=== PATIENT | female | born 1970 | race Caucasian/White ===

== ENCOUNTER 2018-03-23 19:36 | Emergency (ER) | payer OTHER, SELFPAY ==
[2018-03-23 19:37] VITALS: BP 126/68; PULSE 81; RESP 16; TEMP 36.7; O2SAT 98; BMI 23.6
[2018-03-23 20:14] LABS: Mucous, Urine 0 SEEN /hpf (<or=2+)
[2018-03-23 20:15] LABS: Color, Urine Red (Yellow); Glucose, Dipstick Normal (Normal); Ketone-Dipstick 5 mg/dl (Negative); Leukocyte Esterase-Dipstick 100 /ul (Negative); Nitrite-Dipstick Positive (Negative); Occult Blood-Urine 250 /ul (Negative); Protein-Dipstick 30 mg/dl (Negative); Urine Bilirubin Dipstick Negative (Negative); Urine Clarity Cloudy (Clear); Urine Urobilinogen Normal (Normal)
[2018-03-23 20:43] LABS: Squamous Epithelial Cells - UA 0-5 SEEN /hpf (5-10)
[2018-03-23 20:46] LABS: Red Blood Cells-Urine > 100 SEEN /hpf (0-5)
--- NOTE | 2018-03-23 20:46 | CT_ITS ---
STUDY: CT ABDOMEN AND PELVIS WITHOUT CONTRAST REASON FOR EXAM: Female, 47 years old. Right upper quadrant pain RADIATION DOSAGE (If Supplied By Facility): CTDIvol = ( 11.45 ) mGy, DLP = ( 580.61 ) mGycm TECHNIQUE: Transaxial images were obtained from the dome of the diaphragm to the symphysis pubis without oral contrast, and without intravenous contrast. Sagittal and coronal images were reconstructed. Individualized dose optimization techniques were used for this CT. COMPARISON: December 16, 2011 FINDINGS: The visualized lung bases are unremarkable. The visualized portions of the heart are within normal limits. Normal liver. Normal gallbladder and extrahepatic biliary system. Normal spleen. Normal pancreas. Normal bilateral adrenal glands. Normal right kidney. Tiny nonobstructing left renal calculus. No evidence for hydronephrosis or ureteral calculus. No focal renal mass given limited unenhanced nature of the study.. Normal visualized stomach. Normal small intestine. Minor diverticular disease of the sigmoid colon without evidence for acute diverticulitis.. The appendix is visualized and appears normal. Normal abdominal aorta. Normal inferior vena cava. Normal retroperitoneum. Mild prominence of uterus slightly deviated towards the right depressing the dome of the bladder which is incompletely distended. There is a tiny calcification within the uterus possibly in association with tiny fibroid. Normal abdominal wall. Lumbar spine demonstrates mild spondylosis most severe at L5-S1. Previously noted right renal stone not visualized and there are fewer stones in the left kidney when compared with previous study which may be due to interim passage of the calculi. CT/Abdomen/Pelvis without Cont IMPRESSION: Left nephrolithiasis. No evidence for hydronephrosis or ureteral calculus. No evidence for acute appendicitis. Mild diverticular disease of the sigmoid colon without evidence for acute diverticulitis Other findings as above Electronically Signed: Maxim Riggs MD at 21:19 EDT , Service support ,
[2018-03-23 20:47] LABS: White Blood Cells 5-10 SEEN /hpf (0-5)
[2018-03-23 20:48] LABS: Trichomonas 0-5 SEEN /hpf (None Seen)
[2018-03-23 20:50] LABS: Bacteria RARE /hpf (None Seen)
[2018-03-23 20:59] LABS: Absolute Lymphocyte Count 1.15 X10^3/ul (0.83-4.51); Absolute Neutrophil Count 2.9 X10^3/uL (2.0-7.7); Basophil# 0.02 X10^3/uL; Basophil% 0.4 % (0-1); Eosinophil# 0.09 X10^3/uL; Eosinophils% 1.9 % (0-5); Hematocrit 36.3 % (37-47); Lymphocyte # 1.15 X10^3/ul (4.0); Lymphocyte % 24.9 % (19-41); Mean Corp Hgb Conc 33.1 g/gl (32-36); Mean Corpuscular Hgb 28.1 pg (27.0-32.0); Mean Platelet Vol. 9.9 fl (6.2-12.0); Monocyte# 0.49 X10^3/uL; Monocyte% 10.6 % (0-10); Neutrophil # 2.87 X10^3/uL (2.7-7.7); Neutrophil % 62.2 % (47-70); POSITIVE COUNT NO; POSITIVE DIFFERENTIAL NO; POSITIVE MORPHOLOGY NO; Platelet Count 257 K/mm3 (150-450); RBC Distribution Width CV 12.9 % (11.6-14.6); RBC Distribution Width SD 39.7 fl (35.1-43.9); Red Blood Count 4.27 M/mm3 (4.2-5.4); White Blood Count 4.6 K/mm3 (4.4-11.0)
[2018-03-23 21:06] LABS: Internal QC Validated? YES +Cl - CLEAR BKGD; Pregnancy, Urine Negative Negative
[2018-03-23 21:09] LABS: ALB/GLOB Ratio 1.1 RATIO (0.9-2.4); AST(SGOT) 12 U/L (15-37); Alanine Aminotransfer ALT/SGPT 16 U/L (13-56); Albumin, Serum 3.4 g/dL (3.2-5.0); Alkaline Phosphatase 52 U/L (45-117); Anion Gap 7 (5-15); BUN 21 mg/dL (7-18); BUN/Creat Ratio 18.8 RATIO (10-20); Chloride 106 mmol/L (98-107); Creatinine, Serum 1.12 mg/dL (0.55-1.02); EST Glomerular Filtration Rate 56 mL/min (>60); Est Glom Filt Rate - Afr Amer 67 mL/min (>60); Estimated Creatinine Clearance 65.59 ml/min; Globulin 3.2 g/dL (2.2-4.2); Glucose 105 mg/dL (74-106); Lipase 133 U/L (73-393); Potassium 3.3 mmol/L (3.5-5.1); Protein, Total 6.6 g/dL (6.4-8.2); Sodium Level 140 mmol/L (136-145)
--- NOTE | 2018-03-23 22:30 | ED.DCSUM_ITS ---
- ER Visit Summary Date of Service: 03/23/18 Chief Complaint: Vaginal bleeding, abdominal pain History of Present Illness: The patient is a 47 F 1 week history of vaginal bleeding. States her last menstrual period ended a week prior. She has normal menstrual period. She goes through normal menstrual pads. Denies any anticoagulation medicines. Sexually active single partner. No history of STDs. States right-sided abdominal pain started 2 days ago, waxes and wanes. History of kidney stones, states last time was 5 years ago, states this was similar. Previous nausea. No vomiting. There is mild loose stools. Is tolerating oral fluids. Denies any urine symptoms except for noticing blood, unclear is from vaginal region. No fever, chills, sweats. Denies any history of gastric ulcers or kidney injury. Physical Examination: General: Alert and oriented ?3, no acute distress HEENT: Normocephalic, atraumatic. Moist mucosa membranes Neck: supple, nontender. Cardiovascular: Regular rate and rhythm, no murmurs Respiratory: Normal breath sounds, symmetric, no distress Abdomen: Soft, nontender, nondistended Extremities: Nontender, no edema, pulses intact ?4 Neuro: no focal neurological deficits. Test Results: White count 4.6, hemoglobin 12. Potassium 3.3. Creatinine 1.12. Lipase 130. Liver enzymes normal. Urine 100 leukocytes nitrates positive blood to 50 white blood cell count 5-10 hCG negative. 0-5 trichomonas. GC and chlamydia sent. Urine culture pending. CT abdomen pelvis: Left nephrolithiasis , no obstructive uropathy. Normal appendix. Emergency Department Course and Treatment: Patient nontoxic, nonsurgical abdomen. Declines any medications at this time. She is concerned of kidney stones. Workup initiated. CT with no acute process. Abdominal labs are normal. Urine noted leukocytes nitrites and white blood cell counts. She denies urine symptoms. Urine culture sent. However also urine noted trichomonas. I did send for GC and chlamydia. Discussed findings with the patient. She sexually active single partner. Discussed treatment options for coverage STD. She agreed. Flagyl, Rocephin, Zithromax given. Discussed alcohol precautions. Also states patient tell her partner to get tested for possible treatment. Hemoglobin stable for her vaginal bleeding complaints. She is given follow-up with on-call [employer] for outpatient evaluation and follow- up. Treatment Plan: [] Disposition: Discharge Impression: 1. Nonspecific abdominal pain 2. Trichomonas 3. Dysfunctional uterine bleeding This note was generated with [employer] dictation software. It may contain incorrect words, spelling, and punctuation that were not noted in review of the chart prior to signing ED Disposition - Plan for ED Patient: Disposition: Home or Assisted Living Chief Complaint: Abd Pain Diagnosis: Abdominal pain, Dysfunctional uterine bleeding, Trichomonas infection Instructions: ED Abdominal Pain Unkn Cause, ED Bleed Irregular Vaginal, ED Vaginitis Trichomonas Referrals: Freedom Mcintosh MD [Primary Care Provider] - Sadaf Bryson MD [STAFF PHYSICIAN] - 5-7 Days Additional Instructions: No alcohol for a week status post flagyl treatment.
[2018-03-23 22:48] LABS: Chlamydia Trachomatis by PCR Negative (Negative); Neisserai gonorrhoeae by PCR Negative (Negative); Probe Check PASS; Sample Adequacy Control PASS; Specimen Processing Control PASS
[2018-03-23] MEDS: Azithromycin 250 MG Tablet 1000 MG PO (23:02)
[2018-03-23] MEDS: Ceftriaxone 500 MG Vial 250 MG IM (23:07)
[2018-03-23 23:37] VITALS: BP 109/80; PULSE 75; RESP 16; O2SAT 98
== END 2018-03-23 23:38 | disposition home or self-care (01) ==
PROVIDERS: Emergency Provider Emergency Medicine; Family Provider Family Medicine; PCP Family Medicine
DX: R10.9 Unspecified abdominal pain (principal); A59.9 Trichomoniasis, unspecified; N93.8 Other specified abnormal uterine and vaginal bleeding; N20.0 Calculus of kidney; R19.7 Diarrhea, unspecified; I10 Essential (primary) hypertension; Z87.442 Personal history of urinary calculi; Z79.899 Other long term (current) drug therapy
CPT/HCPCS: 74176; 80053; 81001; 81025; 83690; 85025; 87086; 87088; 87491; 87591; 96372; 99285; A4216

== ENCOUNTER 2019-12-24 23:54 | Emergency (ER) | payer OTHER, SELFPAY ==
[2019-12-24 23:55] VITALS: BP 126/102; PULSE 71; RESP 16; TEMP 36.6; O2SAT 98; BMI 28.1
--- NOTE | 2019-12-25 00:15 | CT_ITS ---
STUDY: CT ABDOMEN AND PELVIS WITHOUT CONTRAST REASON FOR EXAM: Female, 49 years old. LT FLANK PAIN X 6 DAYS -- HX:HTN,KIDNEY STONES WITH PRIOR LITHOTRIPSY RADIATION DOSAGE (If Supplied By Facility): CTDIvol = ( 10.64 ) mGy, DLP = ( 571.66 ) mGycm TECHNIQUE: Transaxial images were obtained from the dome of the diaphragm to the symphysis pubis without oral contrast, and without intravenous contrast. Sagittal and coronal images were reconstructed. Individualized dose optimization techniques were used for this CT. COMPARISON: 03/23/2018. FINDINGS: The visualized lung bases are unremarkable. The visualized portions of the heart are within normal limits. Normal liver. Normal gallbladder and extrahepatic biliary system. Normal spleen. Normal pancreas. Normal bilateral adrenal glands. Normal right kidney. Normal left kidney. Normal visualized stomach. Normal small intestine. Normal colon. The appendix is visualized and appears normal. Normal abdominal aorta. Normal inferior vena cava. Normal retroperitoneum. Urinary bladder is empty. Anteverted uterus. Normal abdominal wall. Degenerative disease at L5-S1. CT/Abdomen/Pelvis without Cont IMPRESSION: No acute process within the abdomen or pelvis. No bowel obstruction. Unremarkable abdominal viscera. Electronically Signed: Lizette Orozco MD at 1:32 EST , Service support ,
--- NOTE | 2019-12-25 00:16 | ED.VIS.GEN ---
History of Present Illness Chief Complaint: Flank Pain Detail of Chief Complaint: Left flank pain Informant: Patient Onset: Days - 6 days Context: Gradual Onset Timing: Waxes and wanes Current Severity: Moderate Maximum Severity: Moderate Narrative: Patient presents with pain to the left flank that started 6 days ago. She was seen by her PCP 4 days ago. She states her blood and urine test were unremarkable at that time. She was scheduled for a CT scan to be done this week. Patient states she continues to have pain and she decided tonight to come in to be evaluated. She denies any dysuria or hematuria. She is been having normal bowel movements. She is had no fever or chills. - Past Medical History (1) Kidney stone Status: Resolved Past Medical History - Allergies and Home Meds Allergies/Adverse Reactions: Allergies meperidine HCl [From Demerol] Allergy (Verified 03/23/18 19:39) Rash Primary Care Physician: Freedom Mcintosh MD [Primary Care Provider] - Prior records reviewed: Yes Smoking Status: Never smoker Review of Systems General: Denies: Chills, Fever Eyes: Denies: Visual changes - bilaterally ENT: Denies: Bilateral ear pain Cardiovascular: Denies: Chest pain Respiratory: Denies: Dyspnea, Cough Gastrointestinal: Reports: Abdominal pain. Denies: Nausea, Vomiting, Diarrhea Genitourinary: Denies: Dysuria, Hematuria Musculoskeletal: Reports: Back pain - Left flank Skin: Denies: Rash Neurological: Denies: Headache Psych: Denies: Depression, Anxiety Allergy: Denies: Uticaria Physical Exam Vital Signs/Narrative: Vital Signs Temp Pulse Resp BP Pulse Ox 12/24/19 23:55 97.8 F 71 16 126/102 H 98 Inital Vital Signs reviewed: Yes General: Well nourished, Well developed Head: Normocephalic ENT: Moist mucous membranes Neck: Supple Cardiovascular: Regular rate, Regular rhythm Respiratory: No distress, CTA bilaterally Abdomen: Soft, Tender - Minimal tenderness in the left lower quadrant., Hypoactive bowel sounds. Negative for: Guarding, Rebound tenderness Back: Negative for: CVA tenderness Extremities: Negative for: Nontender Skin: Negative for: Normal color Neurological: Negative for: Alert, Oriented x3 Psychological: Negative for: Normal affect Diagnostic/Tx/Re-eval Impressions Abdomen/Pelvis CT 12/25/19 00:15 IMPRESSION: No acute process within the abdomen or pelvis. No bowel obstruction. Unremarkable abdominal viscera. Electronically Signed: Lizette Orozco MD at 1:32 EST , Service support , 12/25/19 00:15 Abdomen/Pelvis without Cont [CT] Stat Laboratory Results 12/25/19 12/25/19 12/25/19 00:25 00:25 00:25 WBC 5.9 RBC 4.46 Hgb 13.1 Hct 38.9 MCV 87.2 MCH 29.4 MCHC 33.7 RDW Std Deviation 40.7 RDW Coeff of Jenifer 13.0 Plt Count 198 MPV 10.0 Immature Gran % (Auto) 0.300 Neut % (Auto) 54.6 Lymph % (Auto) 32.6 [place] % (Auto) 9.3 Eos % (Auto) 2.4 Baso % (Auto) 0.8 Absolute Neuts (auto) 3.2 Absolute Lymphs (auto) 1.92 Nucleated RBC % 0 Sodium 141 Potassium 3.1 L Chloride 107 Carbon Dioxide 29.0 Anion Gap 5 BUN 32 H Creatinine 1.23 H Estim Creat Clear Calc 54.39 Est GFR (MDRD) Af Amer 60 Est GFR (MDRD) Non-Af 50 L BUN/Creatinine Ratio 26.0 H Glucose 88 Calcium 9.0 Serum , Qual NEGATIVE Urine Color Urine Clarity Urine pH Ur Specific [place] Urine Protein Urine Glucose (UA) Urine Ketones Urine Occult Blood Urine Nitrite Urine Bilirubin Urine Urobilinogen Ur Leukocyte Esterase Urine RBC Urine WBC Ur Squamous Epith Cells Urine Bacteria Urine Mucus 12/25/19 00:30 WBC RBC Hgb Hct MCV MCH MCHC RDW Std Deviation RDW Coeff of Jenifer Plt Count MPV Immature Gran % (Auto) Neut % (Auto) Lymph % (Auto) [place] % (Auto) Eos % (Auto) Baso % (Auto) Absolute Neuts (auto) Absolute Lymphs (auto) Nucleated RBC % Sodium Potassium Chloride Carbon Dioxide Anion Gap BUN Creatinine Estim Creat Clear Calc Est GFR (MDRD) Af Amer Est GFR (MDRD) Non-Af BUN/Creatinine Ratio Glucose Calcium Serum , Qual Urine Color Yellow Urine Clarity Clear Urine pH 6.0 Ur Specific [place] 1.020 Urine Protein 15 H Urine Glucose (UA) Normal Urine Ketones Negative Urine Occult Blood 10 H Urine Nitrite Negative Urine Bilirubin Negative Urine Urobilinogen Normal Ur Leukocyte Esterase Negative Urine RBC 5-10 SEEN Urine WBC 10-25 SEEN Ur Squamous Epith Cells 5-10 SEEN Urine Bacteria 0 SEEN Urine Mucus 0 SEEN - Medical Decision Making Patient was given IV fluids here. She declined anything for pain or nausea. Test results are discussed with her. Her potassium is slightly low but I would not expect this to cause focal pain in the left lower quadrant. There is no evidence of kidney stone or ovarian cyst. Patient is encouraged to call her PCP tomorrow for close follow-up. She will be given 40 mEq of potassium chloride here prior to discharge. ED Disposition - Plan for ED Patient: Disposition: Home or Assisted Living Diagnosis: Abdominal pain Instructions: ABDOMINAL PAIN, Unknown Cause, (Female) Referrals: Freedom Mcintosh MD [Primary Care Provider] - As soon as possible
[2019-12-25] MEDS: 0.9% Normal Saline 1,000 ML 200 ML IV (00:30)
[2019-12-25 00:35] LABS: Bacteria 0 SEEN /hpf (None Seen); Mucous, Urine 0 SEEN /hpf (<or=2+)
[2019-12-25 00:37] LABS: Color, Urine Yellow (Yellow); Glucose, Dipstick Normal (Normal); Ketone-Dipstick Negative (Negative); Leukocyte Esterase-Dipstick Negative /ul (Negative); Nitrite-Dipstick Negative (Negative); Occult Blood-Urine 10 /ul (Negative); Protein-Dipstick 15 mg/dl (Negative); Urine Bilirubin Dipstick Negative (Negative); Urine Clarity Clear (Clear); Urine Urobilinogen Normal (Normal)
[2019-12-25 00:45] LABS: Internal QC Validated? YES +Cl - CLEAR BKGD; Pregnancy, Serum, hCG Quali. NEGATIVE Negative
[2019-12-25 00:45] LABS: Red Blood Cells-Urine 5-10 SEEN /hpf (0-5); Squamous Epithelial Cells - UA 5-10 SEEN /hpf (5-10); White Blood Cells 10-25 SEEN /hpf (0-5)
[2019-12-25 00:53] LABS: Anion Gap 5 (5-15); BUN 32 mg/dL (7-18); Chloride 107 mmol/L (98-107); Creatinine, Serum 1.23 mg/dL (0.55-1.02); EST Glomerular Filtration Rate 50 mL/min (>60); Est Glom Filt Rate - Afr Amer 60 mL/min (>60); Estimated Creatinine Clearance 54.39 ml/min; Glucose 88 mg/dL (74-106); Potassium 3.1 mmol/L (3.5-5.1); Sodium Level 141 mmol/L (136-145)
[2019-12-25 00:54] LABS: Absolute Lymphocyte Count 1.92 X10^3/uL (0.83-4.51); Absolute Neutrophil Count 3.2 X10^3/uL (2.0-7.7); Basophil# 0.05 X10^3/uL; Basophil% 0.8 % (0-1); Eosinophil# 0.14 X10^3/uL; Eosinophils% 2.4 % (0-5); Hematocrit 38.9 % (37-47); Hemoglobin 13.1 g/dL (12.0-15.0); Lymphocyte # 1.92 X10^3/ul (4.0); Lymphocyte % 32.6 % (19-41); Mean Corp Hgb Conc 33.7 g/dL (32-36); Mean Corpuscular Hgb 29.4 pg (27.0-32.0); Mean Corpuscular Volume 87.2 fL (81-99); Monocyte# 0.55 X10^3/uL; Monocyte% 9.3 % (0-10); NRBC Flagged by Analyzer 0 % (0-5); Neutrophil # 3.21 X10^3/uL (2.7-7.7); Neutrophil % 54.6 % (47-70); Platelet Count 198 K/mm3 (150-450); RBC Distribution Width SD 40.7 fl (35.1-43.9); Red Blood Count 4.46 M/mm3 (4.2-5.4); White Blood Count 5.9 K/mm3 (4.4-11.0)
[2019-12-25 01:44] VITALS: RESP 16
== END 2019-12-25 01:44 | disposition home or self-care (01) ==
PROVIDERS: Emergency Provider Emergency Medicine; PCP Family Medicine
DX: R10.32 Left lower quadrant pain (principal); M54.9 Dorsalgia, unspecified; Z87.442 Personal history of urinary calculi
CPT/HCPCS: 74176; 80048; 81001; 84703; 85025; 96360; 99284; J7030; A4216

== ENCOUNTER 2024-12-06 03:32 | Emergency (ER) | payer BC, SELFPAY ==
[2024-12-06 03:33] VITALS: BP 135/81; PULSE 100; RESP 16; TEMP 36.4; O2SAT 96; BMI 27.2
--- NOTE | 2024-12-06 03:49 | CT_ITS ---
INDICATION: Left flank pain COMPARISON: 12/25/[address] A radiation dose optimization technique was used for this scan. RADIATION DOSAGE (If Supplied By Facility): CTDIvol/DLP = ( 9.04 ) / ( 480.99 ) mGy/mGycm FINDINGS: Noncontrast serial CT axial images through the abdomen and pelvis with coronal and sagittal reformatted series. Multilevel respiratory motion artifact. PANCREAS: No peripancreatic fat stranding. BOWEL/MESENTERY: No dilated bowel loops. No significant free fluid. No free air. Colonic diverticulosis without focus of diverticulitis. GALLBLADDER: No pericholecystic fat stranding. APPENDIX: Normal caliber gas containing appendix. UTERUS/ADNEXA: Unremarkable CT appearance of the uterus and adnexae. LIVER/STOMACH: No obvious abnormality. URINARY COLLECTING SYSTEM/ KIDNEYS: Left ureteropelvic junction 5 mm obstructing calculus with moderate left hydronephrosis and asymmetric perinephric fat stranding and streaky fluid. LUNG BASES: Unremarkable. BONES: Unremarkable for age. CT/Abdomen/Pelvis without Cont IMPRESSION: Left UPJ 5 mm obstructing calculus. Electronically Signed: Tony Goodman MD at 4:58 EST ,
[2024-12-06] MEDS: proCHLORPERazine 10 MG/2 ML Vial IV (03:57)
[2024-12-06] MEDS: Ketorolac 30 MG/ML Syringe IV (03:58)
[2024-12-06] MEDS: DiphenhydrAMINE 50 MG/ML Syringe IV (03:58)
[2024-12-06 03:59] LABS: Absolute Lymphocyte Count 2.12 X10^3/uL (0.83-4.51); Absolute Neutrophil Count 11.3 X10^3/uL (2.0-7.7); Basophil# 0.14 X10^3/uL; Eosinophils% 0.7 % (0-5); Hematocrit 44.6 % (37-47); Hemoglobin 14.5 g/dL (12.0-15.0); Lymphocyte # 2.12 X10^3/ul (0.83-4.51); Lymphocyte % 14.5 % (19-41); Mean Corp Hgb Conc 32.5 g/dL (32-36); Mean Corpuscular Hgb 27.9 pg (27.0-32.0); Mean Corpuscular Volume 85.8 fL (81-99); Mean Platelet Vol. 9.4 fl (6.2-12.0); Monocyte# 0.84 X10^3/uL; Monocyte% 5.8 % (0-10); NRBC Flagged by Analyzer 0 % (0-5); Neutrophil # 11.34 X10^3/uL (2.7-7.7); Neutrophil % 77.7 % (47-70); Platelet Count 295 K/mm3 (150-450); RBC Distribution Width SD 40.2 fl (35.1-43.9); White Blood Count 14.6 K/mm3 (4.4-11.0)
[2024-12-06] MEDS: 0.9% Normal Saline (1000mL) 1,000 ML 999 ML IV (03:59)
[2024-12-06 04:33] LABS: AST(SGOT) 16 U/L (15-37); Alanine Aminotransfer ALT/SGPT 22 U/L (13-56); Alkaline Phosphatase 91 U/L (45-117); Anion Gap 5 (5-15); BUN 21 mg/dL (7-18); BUN/Creat Ratio 18.8 RATIO (10-20); Calcium,Total 9.4 mg/dL (8.5-10.1); Chloride 112 mmol/L (98-107); Creatinine, Serum 1.12 mg/dL (0.55-1.02); EST Glomerular Filtration Rate 54 mL/min (>60); Est Glom Filt Rate - Afr Amer 65 mL/min (>60); Estimated Creatinine Clearance 67.09 ml/min; Glucose 126 mg/dL (74-106); Lipase 27 U/L (13-75); Potassium 3.6 mmol/L (3.5-5.1); Sodium Level 142 mmol/L (136-145)
[2024-12-06] MEDS: Morphine 4 MG/ML Syringe IV (05:23)
[2024-12-06 05:33] VITALS: BP 143/85; PULSE 91; RESP 16; O2SAT 98
--- NOTE | 2024-12-06 05:57 | EDS_ITS ---
HPI History of Present Illness Chief Complaint: Abd Pain Informant: patient and spouse/S.O. Narrative Narrative: Patient is a 54-year-old female with past medical history of kidney stone. She states she was sleeping and then awoke with left-sided abdominal/back pain. She states there is been no recent trauma or excessive activity. She denies any recent hematuria or dysuria. She states that she took [id number] medications without symptom improvement and secondary to the persistent pain comes in for evaluation [facility] Medical History (Updated 12/06/24 @ 23:[address] Bry Hardy, DO) Kidney stones Home Medications ?Medication ?Instructions ?Recorded ?Last Taken ?Type atenolol 50 mg tablet 50 mg PO BID 09/03/13 02/21/14 20:00 History hydrochlorothiazide 50 mg tablet 50 mg PO DAILY 03/23/18 Unknown History lisinopril 40 mg tablet 40 mg PO DAILY 03/23/18 Unknown History amlodipine 10 mg tablet 10 mg PO DAILY 12/06/24 Unknown History cephalexin 500 mg capsule 500 mg PO TID 7 days #21 caps 12/06/24 Unknown Rx ketorolac 10 mg tablet 10 mg PO 4X/DAY PRN pain 5 days 12/06/24 Unknown Rx #20 tabs ondansetron 4 mg disintegrating 4 mg PO TID PRN nausea and 12/06/24 Unknown Rx tablet vomiting #21 tabs oxycodone 5 mg tablet 5 mg PO Q6H PRN pain 5 days #20 12/06/24 Unknown Rx tabs tamsulosin 0.4 mg capsule (Flomax) 0.4 mg PO DAILY 14 days #14 caps 12/06/24 Unknown Rx Allergy/AdvReac Type Severity Reaction Status Date / Time meperidine HCl (From Demerol) Allergy Rash Verified 12/06/24 03:35 Social History Smoking Status: Never smoker [facility] ED Constitutional Constitutional ED: Denies chills or fever(s) ENT ENT ED: Denies sore throat Cardiovascular Cardiovascular: Denies chest pain Respiratory/Chest Respiratory/Chest: Denies cough or dyspnea Gastrointestinal Gastrointestinal: Reports abdominal pain and nausea; Denies diarrhea or vomiting Genitourinary Genitourinary ED: Denies dysuria, hematuria or urinary frequency Musculoskeletal Musculoskeletal: Reports back pain Integumentary Denies rash Neurologic Neurologic: Denies headache(s) Hematologic/Lymphatic Hematologic/Lymphatic: Denies easy bleeding or easy bruising EXAM Physical Exam Const Vital Signs: 12/06/24 03:33 12/06/24 05:33 12/06/24 06:50 Temperature 97.6 F L 97.8 F Temperature Source Oral Pulse Rate 100 91 101 H Respiratory Rate 16 16 16 Blood Pressure 135/81 H 143/85 H 149/70 H Blood Pressure Mean 99 104 96 Pulse Ox 96 98 98 Oxygen Delivery Method Room Air Positive well nourished and well developed General Appearance ED: well developed; Negative for pallor HEENT HEENT Narrative: Normocephalic atraumatic Eyes PERRL and EOMs intact bilaterally General Eye ED: Negative for scleral icterus Neck supple Resp normal respiratory effort and clear to auscultation bilaterally Cardio regular rate and regular rhythm Rate: other Other Details: Heart is regular rate and rhythm without murmurs rubs or gallop Radial and carotid pulses are equal and symmetric GI non-distended and no masses GI Narrative: Abdomen is soft and nondistended with normal active bowel sounds. There is pain on palpation in the left lateral abdomen diffusely greatest in the left lower quadrant. No voluntary guarding or rigidity or pulsatile mass. No peritoneal signs. Auscultation: normoactive bowel sounds Palpation: soft Back/Spine Back/Spine Narrative: Positive left CVA pain noted Extremity normal to inspection Neuro oriented x3, CN's II-XII intact bilaterally and no sensory deficits noted Sensorium / Orientation: alert Motor Exam: strength 5/5 throughout Psych mental status grossly normal Skin no rashes or lesions noted and no wounds Skin Narrative: No overlying soft tissue changes to suggest trauma or infection General Skin Exam: Negative for jaundice or pallor MDM MDM MDM Narrative Medical decision making narrative: Patient arrived to the ER with stable vitals. She reported sudden onset of left-sided flank/abdominal pain. Differential diagnosis is for UTI versus pyelonephritis versus kidney stone versus diverticulitis versus colitis. As kidney stone appears to be the most likely differential basic blood work with urine sample and a noncontrast CT were ordered. Patient's white count is elevated at 14.6 which could be secondary to infection or stress response but otherwise she does not have GERSON or electrolyte abnormality. CT scan confirmed a 5 mm stone at the UPJ which correlates with her history and exam. Urine sample also showed changes consistent with infection. However she is not hypotensive she is not febrile and therefore she is not displaying uroseptic. After receiving IV fluids as well as treatment in the ER patient reported improvement of her pain. Therefore at this time without GERSON urosepsis or intractable pain the patient wishes to try treatment at home and therefore will place on antibiotics secondary to the UTI as well as pain medication and Flomax for the kidney stone. She agrees to follow-up with urology to discuss need for further intervention such as stent placement or lithotripsy but also agrees to return to the ER if her symptoms are uncontrolled with the provided medication or she develops a fever despite taking the antibiotic. History & Record Review Discussion w/independent historian: Patient and Significant other Lab Data Attestation: I reviewed the patient's lab results. Labs: Laboratory Results - last 24 hr 12/06/24 12/06/24 03:45 06:02 WBC 14.6 H RBC 5.20 Hgb 14.5 Hct 44.6 MCV 85.8 MCH 27.9 MCHC 32.5 RDW Std Deviation 40.2 RDW Coeff of Jenifer 13.0 Plt Count 295 MPV 9.4 Immature Gran % (Auto) 0.300 Neut % (Auto) 77.7 H Lymph % (Auto) 14.5 L [place] % (Auto) 5.8 Eos % (Auto) 0.7 Baso % (Auto) 1.0 Absolute Neuts (auto) 11.3 H Absolute Lymphs (auto) 2.12 Nucleated RBC % 0 Sodium 142 Potassium 3.6 Chloride 112 H Carbon Dioxide 24.0 Anion Gap 5 BUN 21 H Creatinine 1.12 H Estim Creat Clear Calc 67.09 Est GFR (MDRD) Af Amer 65 Est GFR (MDRD) Non-Af 54 L BUN/Creatinine Ratio 18.8 Glucose 126 H Calcium 9.4 Total Bilirubin 0.40 Direct Bilirubin 0.10 AST 16 ALT 22 Alkaline Phosphatase 91 Total Protein 7.0 Albumin 4.0 Globulin 3.0 Lipase 27 Urine Color Yellow Urine Clarity Sl. Cloudy Urine pH 5.0 Ur Specific [place] 1.025 Urine Protein 30 H Urine Glucose (UA) Normal Urine Ketones 15 H Urine Occult Blood 250 H Urine Nitrite Positive H Urine Bilirubin Negative Urine Urobilinogen Normal Ur Leukocyte Esterase 500 H Urine RBC 0-5 SEEN Urine WBC 10-25 SEEN Ur Squamous Epith Cells 0 SEEN Urine Bacteria 2+ Urine Mucus 0 SEEN Radiography Diagnostic Testing: Clinical Impression(s) from Imaging Studies Abdomen/Pelvis CT 12/06/24 03:49 IMPRESSION: Left UPJ 5 mm obstructing calculus. Electronically Signed: Tony Goodman MD at 4:58 EST , Discharge Plan Triage Chief Complaint: Abd Pain ED Provider: Bry Hardy Dx/Rx/DC Orders Clinical Impression: Kidney stone, Renal colic, UTI (urinary tract infection) Instructions: ED Kidney Stone with Pain Prescriptions: New oxycodone 5 mg tablet 5 mg PO Q6H PRN (Reason: pain) 5 Days Qty: 20 0RF ketorolac 10 mg tablet 10 mg PO 4X/DAY PRN (Reason: pain) 5 Days Qty: 20 0RF tamsulosin [Flomax] 0.4 mg capsule 0.4 mg PO DAILY 14 Days Qty: 14 0RF ondansetron 4 mg tablet,disintegrating 4 mg PO TID PRN (Reason: nausea and vomiting) Qty: 21 0RF cephalexin 500 mg capsule 500 mg PO TID 7 Days Qty: 21 0RF No Action atenolol 50 MG tablet 50 mg PO BID Patient Comments: PT TOOK hydrochlorothiazide 50 MG tablet 50 mg PO DAILY Patient Comments: TAKE 1 TABLET BY MOUTH EVERY DAY lisinopril 40 MG tablet 40 mg PO DAILY Patient Comments: TAKE 1 TABLET BY MOUTH ONCE DAILY. amlodipine 10 mg tablet 10 mg PO DAILY Primary Care Provider: Freedom Mcintosh Referrals: Freedom Mcintosh MD [Primary Care Provider] - Katerine Douglas MD [Med Staff - Active Staff] - Activity Restrictions/Additional Instructions: Please take your oxycodone and Toradol together for the next 5 days as they will work synergistically to keep your pain down farther and away for a longer timeframe. Stay hydrated and stay active in order to help pass the stone. If your pain is uncontrolled with the provided medication or you develop a fever or have any further concerns please return to the ER for repeat evaluation Print Language: Chinese Disposition Disposition: Home, Self Care Discharge Date/Time: 12/06/24 06:51
[2024-12-06 06:10] LABS: Mucous, Urine 0 SEEN /hpf (<or=2+); Squamous Epithelial Cells - UA 0 SEEN /hpf (5-10)
[2024-12-06 06:13] LABS: Color, Urine Yellow (Yellow); Glucose, Dipstick Normal (Normal); Ketone-Dipstick 15 mg/dl (Negative); Leukocyte Esterase-Dipstick 500 /ul (Negative); Nitrite-Dipstick Positive (Negative); Occult Blood-Urine 250 /ul (Negative); Protein-Dipstick 30 mg/dl (Negative); Specific Gravity, Urine 1.025 (1.002-1.030); Urine Bilirubin Dipstick Negative (Negative); Urine Clarity Sl. Cloudy (Clear); Urine Urobilinogen Normal (Normal)
[2024-12-06 06:50] VITALS: BP 149/70; PULSE 101; RESP 16; TEMP 36.6; O2SAT 98
[2024-12-06 07:03] LABS: Bacteria 2+ /hpf (None Seen); Red Blood Cells-Urine 0-5 SEEN /hpf (0-5); White Blood Cells 10-25 SEEN /hpf (0-5)
== END 2024-12-06 06:51 | disposition home or self-care (01) ==
PROVIDERS: Emergency Provider Emergency Medicine; PCP Family Medicine; Visit Provider Emergency Medicine
DX: N39.0 Urinary tract infection, site not specified (principal); N20.0 Calculus of kidney
CPT/HCPCS: 74176; 80048; 80076; 81001; 83690; 85025; 96361; 96374; 96375; 99283; A4216

== ENCOUNTER → 2024-12-10 | Outpatient (CLI) | payer BC, SELFPAY ==
[2024-12-10 14:31] LABS: Anion Gap 7 (5-15); BUN 16 mg/dL (7-18); BUN/Creat Ratio 17.5 RATIO (10-20); Calcium,Total 9.4 mg/dL (8.5-10.1); Chloride 101 mmol/L (98-107); Creatinine, Serum 0.92 mg/dL (0.55-1.02); EST Glomerular Filtration Rate 68 mL/min (>60); Est Glom Filt Rate - Afr Amer 83 mL/min (>60); Glucose 117 mg/dL (74-106); Potassium 2.9 mmol/L (3.5-5.1); Sodium Level 136 mmol/L (136-145)
== END | disposition home or self-care (01) ==
LOC: LAB 13:46
PROVIDERS: PCP Family Medicine; Referring Provider Urology; Visit Provider Urology
DX: N20.0 Calculus of kidney (principal)

== ENCOUNTER → 2024-12-12 | Outpatient (CLI) | payer BC, SELFPAY ==
--- NOTE | 2024-12-12 08:12 | EKG12_ITS ---
Test Reason : PREOP Blood Pressure : */* mmHG Vent. Rate : 69 BPM Atrial Rate : 69 BPM P-R Int : 122 ms QRS Dur : 82 ms QT Int : 424 ms P-R-T Axes : 50 -14 36 degrees QTcB Int : 454 ms Normal sinus rhythm Moderate voltage criteria for LVH, may be normal variant Borderline ECG Confirmed by COLLEEN ULLOA, PERNELL ([id number]), editor newspaper TEAGAN CHAVEZ ([id number]) on 12/13/2024 5:50:31 AM Referred By: Duncan Hawkins Confirmed By: PERNELL MACIAS MD
== END | disposition home or self-care (01) ==
LOC: PSN 08:12
PROVIDERS: PCP Family Medicine; Referring Provider Urology; Visit Provider Urology
DX: Z01.810 Encounter for preprocedural cardiovascular examination (principal)
CPT/HCPCS: 93005

== ENCOUNTER → 2025-01-31 | Outpatient (CLI) | payer BC, SELFPAY ==
[2025-01-31 16:12] LABS: ALB/GLOB Ratio 1.7 RATIO (0.9-2.4); AST(SGOT) 22 U/L (<=31); Alanine Aminotransfer ALT/SGPT 21 U/L (<=34); Albumin, Serum 4.5 g/dL (3.5-5.0); Alkaline Phosphatase 89 U/L (35-104); Anion Gap 11 (5-15); BUN 15 mg/dL (4-19); BUN/Creat Ratio 16.6 RATIO (10-20); Calcium 9.8 mg/dL (7.6-11.0); Calcium,Total 9.8 mg/dL (7.6-11.0); Carbon Dioxide 25.3 mmol/L (21.0-32.0); Chloride 104 mmol/L (98-108); Creatinine, Serum 0.92 mg/dL (0.70-1.20); EST Glomerular Filtration Rate 74 (>60); Globulin 2.7 g/dL (2.2-4.2); Glucose 83 mg/dL (70-99); Phosphorus 3.9 mg/dL (2.7-4.5); Potassium 3.6 mmol/L (3.3-5.1); Protein, Total 7.2 g/dL (5.9-8.4); Sodium Level 141 mmol/L (133-145); Total Bilirubin 0.23 mg/dL (0.00-1.30)
== END | disposition home or self-care (01) ==
LOC: LAB 14:25
PROVIDERS: PCP Family Medicine; Referring Provider Urology; Visit Provider Urology
DX: N20.0 Calculus of kidney (principal)
CPT/HCPCS: 36415; 80053; 82310; 83735; 84100